=== PATIENT | female | born 1960 | race Caucasian/White ===

== ENCOUNTER → 2018-08-29 | Outpatient (CLI) | payer SELFPAY ==
[~2018-08-29] MED LIST: ENOX80I SQ; METCAR750 PO; OXYACE7.5T PO; OXYC5 PO; PROM25 PO; WARF5 PO
== END | disposition home or self-care (01) ==
LOC: PLD 08:49 → LAB SHORT 08:49
DX: D48.5 Neoplasm of uncertain behavior of skin (principal)
CPT/HCPCS: 88305; 88312

== ENCOUNTER → 2023-10-01 | Outpatient (CLI) | payer OTHER ==
[2023-10-10 16:34] LABS: HPV GENOTYPE 16 Not Detected; HPV GENOTYPE 18 Not Detected; HPV HIGH RISK Detected; HPV SOURCE Cervical/Vag
== END ==
LOC: LAB SHORT 16:13 → LAB 16:13
PROVIDERS: Obstetrics & Gynecology
DX: Z01.419 Encounter for gynecological examination (general) (routine) without abnormal findings (principal)
CPT/HCPCS: 87624; G0123